=== PATIENT | female | born 1955 | race Caucasian/White ===

== ENCOUNTER 2016-06-04 16:37 | Emergency (ER) | payer OTHER ==
--- NOTE | 2016-06-04 22:33 | ED CLINICAL REPORT ---
Clinical Report - Physicians/Mid Levels [facility] [address] [place] [address] 06/04/2016 16:41 Patient: GOKUL SMITH Time Seen: 17:21. Arrived- By private vehicle. Historian- patient (FRIEND). HISTORY OF PRESENT ILLNESS Chief Complaint: ANXIOUS and DEPRESSED. This started months ago but recently much worse. (Ms Smith has had significant anxiety for years. With the of her 8 years ago she has been severely anxious and depressed. She recently changed mental health providers from [facility] to a stand alone psychiatric Nurse practitioner. She has been taking lorazepam for several months from her [facility] provider. She states that she is still taking the medication. She has spoken of "wanting this to end" when speaking of the anxiety. She did ask a friend to canal driver her to a body of water so that she could drown herself. She does not know know her psychiatric diagnosis.). Has been depressed but eating. Has not been sleeping. She has had anxiety. No delusions, self-injury inflicted or hallucinations. Has had suicidal thoughts (high rescue to risk ratio of drowning plan.). Has briefly considered suicide. Expresses unambiguous wish to . Has low lethality plan for suicide. The symptoms are described as severe. She is quite disabled by her severe anxiety. REVIEW OF SYSTEMS No decreased vision, ear pain, sore throat, chest pain or cough. No difficulty breathing, abdominal pain, constipation, diarrhea or nausea. No joint pain, laceration or difficulty with urination. The patient has had depression. No difficulty walking. PAST HISTORY ( PCP: Kari CHEEK). SOCIAL HISTORY Never smoker. Has social support. ADDITIONAL NOTES The nursing notes have been reviewed. PHYSICAL EXAM Vital Signs: 06/04/2016 16:57 BP: 136/99. HR: 116. RR: 16. O2 saturation: 96%. Temp: 97.8 F. Appearance: Alert. Patient is in moderate distress. Is not disheveled. (cooperative but so anxious that cooperation is difficult.). Eyes: Pupils equal, round and reactive to light. Neck: Normal inspection. CVS: Normal heart rate and rhythm. Heart sounds normal. Respiratory: Breath sounds normal. Chest nontender. Abdomen: Soft and nontender. Skin: Skin warm. Normal skin color. Extremities: Extremities exhibit normal ROM. No lower extremity edema. Psych / Neuro: Oriented X 3. Speech normal. Cognition normal. No apparent hallucinations or delusions. She expresses suicidal thoughts. Has not conceived of a specific plan. Patient does not express homicidal thoughts or obsessions or compulsions. Insight and judgement normal. Cranial nerves normal (as tested). Normal gait. No motor deficit. Affect is not blunted or flat. LABS, X-RAYS, AND EKG Laboratory Tests: UA-Culture if indicated: (ERIC: 06/04/2016 17:00) ( MsgRcvd 06/04/2016 18:16) Final results Test Result Flag Units (Reference) URINE COLOR YELLOW URINE APPEARANCE CLEAR URINE GLUCOSE NEGATIVE (NEGATIVE) URINE BILIRUBIN NEGATIVE (NEGATIVE) URINE KETONE NEGATIVE (NEGATIVE) URINE SPECIFIC GRAVITY <= 1.005 L (1.010-1.030) URINE PH 7.0 (5.0-8.0) URINE PROTEIN NEGATIVE (NEGATIVE) URINE UROBILINOGEN 0.2 EU/dL (0.2-1.0) URINE NITRITE NEGATIVE (NEGATIVE) URINE BLOOD TRACE-INTACT (NEGATIVE) URINE LEUK ESTERASE TRACE (NEGATIVE) URINE RBC NONE SEEN rbc/hpf (0-1) URINE WBC NONE SEEN wbc/hpf (0-1) URINE EPITHELIAL CELLS NONE SEEN EPI/hpf (0-5) URINE BACTERIA NONE SEEN (NONE SEEN) URINE COMMENT CULTURE INDICATED URINE CULTURES ARE SET-UP BASED ON THE FOLLOWING CRITERIA:POSITIVE NITRITEPOSITIVE LEUKOCYTE ESTERASEGREATER THAN 10 WHITE BLOOD CELLSMODERATE (2+) OR GREATER BACTERIA CBC w Diff: (ERIC: 06/04/2016 17:18) ( MsgRcvd 06/04/2016 18:11) Final results Test Result Flag Units (Reference) WHITE BLOOD COUNT 5.6 K/uL (4.5-11.5) RED BLOOD COUNT 3.92 L M/uL (4.00-5.20) HEMOGLOBIN 13.4 gm/dL (12.0-16.0) HEMATOCRIT 39.3 % (36.0-46.0) MEAN CELL VOLUME 100 fL (80-100) MEAN CORPUSCULAR HGB 34 pg (26-34) MEAN CORPUSCULAR HGB CONC 34 g/dL (31-37) RED CELL DISTRIBUTION WIDTH 12.8 % (11.6-14.8) PLATELET COUNT 306 K/uL (150-400) NEUTROPHIL % 71.5 % (50-75) LYMPH % 20.2 L % (25-40) MONO % 6.9 % (3-14) EOSINOPHIL % 1.2 % (0-4) BASOPHIL % 0.2 % (0-2) Urine Drug Screen: (ERIC: 06/04/2016 17:00) ( MsgRcvd 06/04/2016 18:19) Final results Test Result Flag Units (Reference) AMPHETAMINE/METHAMPHETAMINE NEGATIVE (NEGATIVE) BARBITURATE NEGATIVE (NEGATIVE) BENZODIAZEPINE NEGATIVE (NEGATIVE) CANNABINOID NEGATIVE (NEGATIVE) COCAINE NEGATIVE (NEGATIVE) ECSTASY NEGATIVE (NEGATIVE) METHADONE NEGATIVE (NEGATIVE) OPIATE NEGATIVE (NEGATIVE) The urine drug screen is a qualitative screening test fordrug overdose and abuse. All screen results should beconsidered as presumptive.Drugs screened for are as follows:BenzodiazepinesCocaineAmphetamines/MetamphetaminesTHC (Tetrahydrocannabinol)OpiatesBarbituratesEcstasyMethadonePositive results are unconfirmed. For confirmation, notifythe lab for the specimen to be sent to the reference lab.All confirmations must be performed by a differentmethodology.The ingestion of natural herbal and plant productscontaining Ephedra/Ephedra metabolites can produce in urineone or more substances capable of cross reacting withamphetamine/methamphetamine immunoassays. These testsprovide a preliminary result only. A more specificalternative chemical method must be used to obtain aconfirmed analytical result. CMP: (ERIC: 06/04/2016 17:18) ( [facility] 06/04[facility] 18:18) Final results Test Result Flag Units (Reference) GLUCOSE 112 H mg/dL (70-110) BUN 14 mg/dL (7-18) CREATININE 1.0 mg/dL (0.6-1.3) Estimated GFR >60 mL/min Estimated GFR- >60 mL/min Note: Persistent reduction over 3 months in eGFR<60 mL/min/1.73 m2 defines CKD. Patients with eGFR values>=60 mL/min/1.73 m2 may also have CKD if evidence ofpersistent proteinuria. Additional information may be foundat www.kidney.org. SODIUM 141 mmol/L (136-145) POTASSIUM 4.0 mmol/L (3.5-5.1) CHLORIDE 102 mmol/L (98-107) CARBON DIOXIDE 29 mmol/L (21-32) CALCIUM 9.3 mg/dL (8.5-10.1) TOTAL PROTEIN 7.4 g/dL (6.4-8.2) ALBUMIN 4.0 g/dL (3.3-5.0) BILIRUBIN, TOTAL 0.2 mg/dL (0.0-1.0) ALKALINE PHOSPHATASE 137 H U/L (46-116) AST (SGOT) 14 L U/L (15-37) ALT (SGPT) 25 U/L (12-78) ETHYL ALCOHOL <3 L mg/dL (3-10) . PROGRESS AND PROCEDURES Course of Care: Of note: Pt states that she is taking Lorazepam but her Utox is negative for Benzodiazepines. That said, she does not have the appearance of benzodiazepine withdrawal. 22:53 06/04/16. She is given her usual quetiapine and Benadryl with Lorazepam 0.5 mg x 3 po. The [employer] tool maintenance worker has been here to see the patient. An admission to [facility] is arraigned. [facility] and Dr Salinas Russell will be the admitting physician. Dr Mayfield is aware of the patient and the plan of care and will intervene if needed. No further ED care is anticipated. The chart is complete but is left unlocked incase Dr Mayfield has additional interventions. A transfer / COBRA form is completed. Disposition: Transferred. CLINICAL IMPRESSION ACUTE PSYCHOSIS DUE TO ANXIETY AND DEPRESSION. (Electronically signed by Brayden Harvey MD 06/05/2016 10:19) Addenda for GOKUL SMITH VisitID: [id number] Date: 06/04/2016 06/05/2016 10:19 Locked without modification (Electronically signed by Brayden Harvey MD - 06/05/2016 10:19)
--- NOTE | 2016-06-04 22:33 | ED ORDER SUMMARY ---
..... Patient: GOKUL CLOUD OrderSheet [facility] VisitID: [id number] [address] [place] [address] 61y, F Registration Date/Time: 06/04/2016 ORDER SHEET Weight: 58.9 kg (estimated) Allergies: Dairy, Reglan, Compazine, Sulfa Antibiotics GENERAL ORDERS: CBC w Diff Urgent (17:53 06/04/2016 [employer]) (Ack 17:56 Kerwin) (19:58 ALawrence ER Tech1) CMP Urgent (17:53 06/04/2016 [employer] [facility]) (Ack 17:56 Kerwin) (19:58 ALawrence ER Tech1) UA-Culture if indicated Urgent (17:53 06/04/2016 [employer] [facility]) (Ack 17:56 Kerwin) (19:58 ALawrence ER Tech1) Urine Drug Screen Urgent (17:53 06/04/2016 [employer] [facility]) (Ack 17:56 Kerwin) (19:58 ALawrence ER Tech1) Ethyl Alcohol Urgent (17:53 06/04/2016 [employer] [facility]) (Ack 17:56 Kerwin) (19:58 ALawrence ER Tech1) MEDICATION ORDERS: LORazepam PO 0.5 mg (HIGH ALERT MEDICATION, NOW) (19:47 06/04/2016 [employer] [facility]) (20:23 EBonartur) Benadryl PO 50 mg (NOW) (22:16 06/04/2016 Maria verbal order read back to [employer]) (22:44 Maria) - (QUIETIAPINE 150 MG PO) (22:26 06/04/2016 [employer] [facility]) (22:46 Maria) LORazepam PO 0.5 mg (NOW) (22:36 06/04/2016 [employer] [facility]) (22:47 Maria) IV FLUIDS: ORDER SHEET NOTES: [Electronically signed by Mahin Shepard R.N. (01:40 06/05/2016)] [Electronically signed by Brayden Harvey MD (10:19 06/05/2016)] [Electronically locked/signed by Mahin Shepard R.N. (01:40 06/05/2016)Mehdi
--- NOTE | 2016-06-04 22:33 | ED NURSING NOTES ---
Clinical Report - Nurses [facility] [address] [place] [address] 06/04/2016 16:41 Patient: GOKUL CLOUD TRIAGE Triage time 16:47. Acuity: LEVEL 2. Chief Complaint: SUICIDAL THOUGHTS and ANXIETY. Alert. No acute distress. VANESSA COMA SCORE: [place] Coma Scale: 15- eyes open spontaneously (4); best verbal response- oriented x 4 (5); best motor response- obeys commands (6). --17:13 Sarah Carrero R.N. 16:57 06/04/16. BP: 136/99. HR: 116. RR: 16. O2 saturation: 96% on room air. Temp: 97.8 F (oral). Pain level now 0/10. --17:13 Sarah Carrero R.N. Weight: 58.9 kg estimated. Height/Length: 60 inches Estimated. BMI: 25.4. --16:57 Sarah Carrero R.N. Medications LORazepam Oral. --17:00 Sarah Carrero R.N. SEROquel Oral. --17:00 Sarah Carrero R.N. Benadryl Oral. --17:01 Sarah Carrero R.N. Medication/allergy information source: the patient. --17:13 Sarah Carrero R.N. Allergies Dairy. --17:09 Sarah Carrero R.N. Reglan. --17:09 Sarah Carrero R.N. Compazine. --17:10 Sarah Carrero R.N. Sulfa Antibiotics. --17:10 Sarah Carrero R.N. History Primary physician (gali). ( pt very anxious in triage. Seen by psychiatrist today and encouraged to come to ED. Brought by friend for statements of self harm which have been increasing in frequency over the past 2 months per her friend. Pt continues to be agitated and has difficulty answering questions). Onset. (1 months ago). 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 SELF HARM ASSESSMENT: A self harm assessment was performed. The friend reported the patient's behavior as agitated and restless and included verbal threats and suicidal comments. In the ED the patient has been agitated and restless. She has been placed under continuous supervision. She was placed in a safe room. Clothes and valuables were removed and placed at the nurses station. The ED physician has been notified. FALL RISK ASSESSMENT: Fall risk assessment completed. No fall risk identified. NUTRITIONAL RISK ASSESSMENT: The nutritional risk assessment revealed no deficiencies. FUNCTIONAL ASSESSMENT: Functional assessment: no impairments noted. LEARNING NEEDS ASSESSMENT: The learning needs assessment revealed no barriers. SKIN INTEGRITY ASSESSMENT: Skin integrity risk assessment completed. No skin integrity risk identified. --17:13 Sarah Carrero R.N. Interventions ID band on patient. To treatment room. --17:13 Sarah Carrero R.N. PHYSICAL ASSESSMENT Ambulatory to room. Patient gowned. GENERAL / NEURO / PSYCH: Alert. Appears anxious and in distress. Speech within normal limits. Patient's mood/affect appears hostile. She appears to have altered thought processes. Good eye contact. Patient appears well-nourished and neat and clean. RESPIRATORY: Respirations not labored. Breath sounds within normal limits. CVS: Normal heart rate and rhythm. Capillary refill less than 2 seconds. GI / : Abdomen soft and nontender. Bowel sounds within normal limits. SKIN: Skin is warm and dry. Skin color is within normal limits. --18:00 Telma Clifford. NURSING PROGRESS NOTES Checked patient name and birthdate: patient confirmed. Blood samples drawn from the left antecubital space with syringe and 23g butterfly by [employer] per protocol ; labeled in presence of the patient and sent to lab: rainbow set: cardiac enzymes (1st set). --17:23 Enrrique Cagle 19:15- Friend left bedside, states she will be back in 30min. --19:16 Fawn Morton R.N. 20:23 06/04/2016 Lorazepam PO 0.5 mg given. 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 --20:23 Telma Clifford ( 2015 Friend back in room). --20:43 Telma Clifford ( 2034 PAt team here). --20:43 Telma Clifford <<STRICKEN ENTRY-- 22:26 06/04/2016 Lorazepam PO 0.5 mg given. Allergies verified and confirmed 5 rights. --22:26 Telma Clifford --END STRIKE>> Change to Details. --22:48 Telma Clifford 22:44 06/04/2016 Benadryl (DiphenhydrAMINE HCl) PO 50 mg given. Allergies verified and confirmed 5 rights. --22:44 Telma Clifford 22:46 06/04/2016 Quetiapine * PO 150mg --22:46 Telma Clifford 22:47 06/04/2016 Lorazepam PO 0.5 mg given. Allergies verified and confirmed 5 rights. --22:47 Telma Clifford 22:51 06/04/16. BP: 111/62. HR: 89. RR: 20. O2 saturation: 98%. --22:51 Telma Clifford ( PAT team done, pt to be transferred, pt requesting light off to sleep.). --22:52 Telma Clifford ( Report to Seema Lakhanifashahana Spence). --00:42 Telma Clifford. DISPOSITION / DISCHARGE Departure time: 0130. Transferred to [facility]. Summary of care provided to EMS and transfer facility via paper (0130 AM). Transported via ambulance by EMS. Report was given to a nurse via a phone call. Report included patient's care, treatment, medications, reviewed medication reconcilliation, and condition (including any recent changes or anticipated changes). All questions were answered. Report was acknowledged and care was transferred. Patient's personal items; items were placed in belongings bag and transported with the patient. --01:40 Mahin Shepard R.N. 01:38 06/05/16. BP: 112/60. HR: 88. RR: 16. O2 saturation: 98%. Temp: 98 F. Pain level now 0/10. --01:40 Mahin Shepard R.N. Locked/Released at 06/05/2016 1:40 by Mahin Shepard R.N.
--- NOTE | 2016-06-04 22:33 | ED CLINICAL REPORT ---
Clinical Report - Physicians/Mid Levels [facility] [address] [place] [address] 06/04/2016 16:41 Patient: GOKUL SMITH Time Seen: 17:21. Arrived- By private vehicle. Historian- patient (FRIEND). HISTORY OF PRESENT ILLNESS Chief Complaint: ANXIOUS and DEPRESSED. This started months ago but recently much worse. (Ms Smith has had significant anxiety for years. With the of her 8 years ago she has been severely anxious and depressed. She recently changed mental health providers from [facility] to a stand alone psychiatric Nurse practitioner. She has been taking lorazepam for several months from her [facility] provider. She states that she is still taking the medication. She has spoken of "wanting this to end" when speaking of the anxiety. She did ask a friend to cattle driver her to a body of water so that she could drown herself. She does not know know her psychiatric diagnosis.). Has been depressed but eating. Has not been sleeping. She has had anxiety. No delusions, self-injury inflicted or hallucinations. Has had suicidal thoughts (high rescue to risk ratio of drowning plan.). Has briefly considered suicide. Expresses unambiguous wish to . Has low lethality plan for suicide. The symptoms are described as severe. She is quite disabled by her severe anxiety. REVIEW OF SYSTEMS No decreased vision, ear pain, sore throat, chest pain or cough. No difficulty breathing, abdominal pain, constipation, diarrhea or nausea. No joint pain, laceration or difficulty with urination. The patient has had depression. No difficulty walking. PAST HISTORY ( PCP: Kari CHEEK). SOCIAL HISTORY Never smoker. Has social support. ADDITIONAL NOTES The nursing notes have been reviewed. PHYSICAL EXAM Vital Signs: 06/04/2016 16:57 BP: 136/99. HR: 116. RR: 16. O2 saturation: 96%. Temp: 97.8 F. Appearance: Alert. Patient is in moderate distress. Is not disheveled. (cooperative but so anxious that cooperation is difficult.). Eyes: Pupils equal, round and reactive to light. Neck: Normal inspection. CVS: Normal heart rate and rhythm. Heart sounds normal. Respiratory: Breath sounds normal. Chest nontender. Abdomen: Soft and nontender. Skin: Skin warm. Normal skin color. Extremities: Extremities exhibit normal ROM. No lower extremity edema. Psych / Neuro: Oriented X 3. Speech normal. Cognition normal. No apparent hallucinations or delusions. She expresses suicidal thoughts. Has not conceived of a specific plan. Patient does not express homicidal thoughts or obsessions or compulsions. Insight and judgement normal. Cranial nerves normal (as tested). Normal gait. No motor deficit. Affect is not blunted or flat. LABS, X-RAYS, AND EKG Laboratory Tests: UA-Culture if indicated: (ERIC: 06/04/2016 17:00) ( MsgRcvd 06/04/2016 18:16) Final results Test Result Flag Units (Reference) URINE COLOR YELLOW URINE APPEARANCE CLEAR URINE GLUCOSE NEGATIVE (NEGATIVE) URINE BILIRUBIN NEGATIVE (NEGATIVE) URINE KETONE NEGATIVE (NEGATIVE) URINE SPECIFIC GRAVITY <= 1.005 L (1.010-1.030) URINE PH 7.0 (5.0-8.0) URINE PROTEIN NEGATIVE (NEGATIVE) URINE UROBILINOGEN 0.2 EU/dL (0.2-1.0) URINE NITRITE NEGATIVE (NEGATIVE) URINE BLOOD TRACE-INTACT (NEGATIVE) URINE LEUK ESTERASE TRACE (NEGATIVE) URINE RBC NONE SEEN rbc/hpf (0-1) URINE WBC NONE SEEN wbc/hpf (0-1) URINE EPITHELIAL CELLS NONE SEEN EPI/hpf (0-5) URINE BACTERIA NONE SEEN (NONE SEEN) URINE COMMENT CULTURE INDICATED URINE CULTURES ARE SET-UP BASED ON THE FOLLOWING CRITERIA:POSITIVE NITRITEPOSITIVE LEUKOCYTE ESTERASEGREATER THAN 10 WHITE BLOOD CELLSMODERATE (2+) OR GREATER BACTERIA CBC w Diff: (ERIC: 06/04/2016 17:18) ( MsgRcvd 06/04/2016 18:11) Final results Test Result Flag Units (Reference) WHITE BLOOD COUNT 5.6 K/uL (4.5-11.5) RED BLOOD COUNT 3.92 L M/uL (4.00-5.20) HEMOGLOBIN 13.4 gm/dL (12.0-16.0) HEMATOCRIT 39.3 % (36.0-46.0) MEAN CELL VOLUME 100 fL (80-100) MEAN CORPUSCULAR HGB 34 pg (26-34) MEAN CORPUSCULAR HGB CONC 34 g/dL (31-37) RED CELL DISTRIBUTION WIDTH 12.8 % (11.6-14.8) PLATELET COUNT 306 K/uL (150-400) NEUTROPHIL % 71.5 % (50-75) LYMPH % 20.2 L % (25-40) MONO % 6.9 % (3-14) EOSINOPHIL % 1.2 % (0-4) BASOPHIL % 0.2 % (0-2) Urine Drug Screen: (ERIC: 06/04/2016 17:00) ( MsgRcvd 06/04/2016 18:19) Final results Test Result Flag Units (Reference) AMPHETAMINE/METHAMPHETAMINE NEGATIVE (NEGATIVE) BARBITURATE NEGATIVE (NEGATIVE) BENZODIAZEPINE NEGATIVE (NEGATIVE) CANNABINOID NEGATIVE (NEGATIVE) COCAINE NEGATIVE (NEGATIVE) ECSTASY NEGATIVE (NEGATIVE) METHADONE NEGATIVE (NEGATIVE) OPIATE NEGATIVE (NEGATIVE) The urine drug screen is a qualitative screening test fordrug overdose and abuse. All screen results should beconsidered as presumptive.Drugs screened for are as follows:BenzodiazepinesCocaineAmphetamines/MetamphetaminesTHC (Tetrahydrocannabinol)OpiatesBarbituratesEcstasyMethadonePositive results are unconfirmed. For confirmation, notifythe lab for the specimen to be sent to the reference lab.All confirmations must be performed by a differentmethodology.The ingestion of natural herbal and plant productscontaining Ephedra/Ephedra metabolites can produce in urineone or more substances capable of cross reacting withamphetamine/methamphetamine immunoassays. These testsprovide a preliminary result only. A more specificalternative chemical method must be used to obtain aconfirmed analytical result. CMP: (ERIC: 06/04/2016 17:18) ( [facility] 06/04/[place] 18:18) Final results Test Result Flag Units (Reference) GLUCOSE 112 H mg/dL (70-110) BUN 14 mg/dL (7-18) CREATININE 1.0 mg/dL (0.6-1.3) Estimated GFR >60 mL/min Estimated GFR- >60 mL/min Note: Persistent reduction over 3 months in eGFR<60 mL/min/1.73 m2 defines CKD. Patients with eGFR values>=60 mL/min/1.73 m2 may also have CKD if evidence ofpersistent proteinuria. Additional information may be foundat [email or web address].org. SODIUM 141 mmol/L (136-145) POTASSIUM 4.0 mmol/L (3.5-5.1) CHLORIDE 102 mmol/L (98-107) CARBON DIOXIDE 29 mmol/L (21-32) CALCIUM 9.3 mg/dL (8.5-10.1) TOTAL PROTEIN 7.4 g/dL (6.4-8.2) ALBUMIN 4.0 g/dL (3.3-5.0) BILIRUBIN, TOTAL 0.2 mg/dL (0.0-1.0) ALKALINE PHOSPHATASE 137 H U/L (46-116) AST (SGOT) 14 L U/L (15-37) ALT (SGPT) 25 U/L (12-78) ETHYL ALCOHOL <3 L mg/dL (3-10) . PROGRESS AND PROCEDURES Course of Care: Of note: Pt states that she is taking Lorazepam but her Utox is negative for Benzodiazepines. That said, she does not have the appearance of benzodiazepine withdrawal. 22:53 06/04/16. She is given her usual quetiapine and Benadryl with Lorazepam 0.5 mg x 3 po. The [place] equipment worker has been here to see the patient. An admission to [facility] is arraigned. The [facility] be [facility] and Dr Salinas Russell will be the admitting physician. Dr Mayfield is aware of the patient and the plan of care and will intervene if needed. No further ED care is anticipated. The chart is complete but is left unlocked incase Dr Mayfield has additional interventions. A transfer / COBRA form is completed. Disposition: Transferred. CLINICAL IMPRESSION ACUTE PSYCHOSIS DUE TO ANXIETY AND DEPRESSION. (Electronically signed by Brayden Harvey MD 06/05/2016 10:19) Addenda for GOKUL SMITH VisitID: [id number] Date: 06/04/2016 06/05/2016 10:19 Locked without modification (Electronically signed by Brayden Harvey MD - 06/05/2016 10:19)
--- NOTE | 2016-06-04 22:33 | ED NURSING NOTES ---
Clinical Report - Nurses [facility] [address] [place] [address] 06/04/2016 16:41 Patient: GOKUL CLOUD TRIAGE Triage time 16:47. Acuity: LEVEL 2. Chief Complaint: SUICIDAL THOUGHTS and ANXIETY. Alert. No acute distress. VANESSA COMA SCORE: [place] Coma Scale: 15- eyes open spontaneously (4); best verbal response- oriented x 4 (5); best motor response- obeys commands (6). --17:13 Sarah Carrero R.N. 16:57 06/04/16. BP: 136/99. HR: 116. RR: 16. O2 saturation: 96% on room air. Temp: 97.8 F (oral). Pain level now 0/10. --17:13 Sarah Carrero R.N. Weight: 58.9 kg estimated. Height/Length: 60 inches Estimated. BMI: 25.4. --16:57 Sarah Carrero R.N. Medications LORazepam Oral. --17:00 Sarah Carrero R.N. SEROquel Oral. --17:00 Sarah Carrero R.N. Benadryl Oral. --17:01 Sarah Carrero R.N. Medication/allergy information source: the patient. --17:13 Sarah Carrero R.N. Allergies Dairy. --17:09 Sarah Carrero R.N. Reglan. --17:09 Sarah Carrero R.N. Compazine. --17:10 Sarah Carrero R.N. Sulfa Antibiotics. --17:10 Sarah Carrero R.N. History Primary physician (gali). ( pt very anxious in triage. Seen by psychiatrist today and encouraged to come to ED. Brought by friend for statements of self harm which have been increasing in frequency over the past 2 months per her friend. Pt continues to be agitated and has difficulty answering questions). Onset. (1 months ago). Treatment REINSTATEMENT CLERK: None. SELF HARM ASSESSMENT: A self harm assessment was performed. The friend reported the patient's behavior as agitated and restless and included verbal threats and suicidal comments. In the ED the patient has been agitated and restless. She has been placed under continuous supervision. She was placed in a safe room. Clothes and valuables were removed and placed at the nurses station. The ED physician has been notified. FALL RISK ASSESSMENT: Fall risk assessment completed. No fall risk identified. NUTRITIONAL RISK ASSESSMENT: The nutritional risk assessment revealed no deficiencies. FUNCTIONAL ASSESSMENT: Functional assessment: no impairments noted. LEARNING NEEDS ASSESSMENT: The learning needs assessment revealed no barriers. SKIN INTEGRITY ASSESSMENT: Skin integrity risk assessment completed. No skin integrity risk identified. --17:13 Sarah Carrero R.N. Interventions ID band on patient. To treatment room. --17:13 Sarah Carrero R.N. PHYSICAL ASSESSMENT Ambulatory to room. Patient gowned. GENERAL / NEURO / PSYCH: Alert. Appears anxious and in distress. Speech within normal limits. Patient's mood/affect appears hostile. She appears to have altered thought processes. Good eye contact. Patient appears well-nourished and neat and clean. RESPIRATORY: Respirations not labored. Breath sounds within normal limits. CVS: Normal heart rate and rhythm. Capillary refill less than 2 seconds. GI / : Abdomen soft and nontender. Bowel sounds within normal limits. SKIN: Skin is warm and dry. Skin color is within normal limits. --18:00 Telma Clifford. NURSING PROGRESS NOTES Checked patient name and birthdate: patient confirmed. Blood samples drawn from the left antecubital space with syringe and 23g butterfly by [employer] per protocol ; labeled in presence of the patient and sent to lab: rainbow set: cardiac enzymes (1st set). --17:23 Enrrique Cagle 19:15- Friend left bedside, states she will be back in 30min. --19:16 Fawn Morton R.N. 20:23 06/04/2016 Lorazepam PO 0.5 mg given. Allergies verified, confirmed 5 rights and sedative warning given to the patient's production analyst. --20:23 Telma Clifford ( 2015 Friend back in room). --20:43 Telma Clifford ( 2034 PAt team here). --20:43 Telma Clifford <<STRICKEN ENTRY-- 22:26 06/04/2016 Lorazepam PO 0.5 mg given. Allergies verified and confirmed 5 rights. --22:26 Telma Clifford --END STRIKE>> Change to Details. --22:48 Telma Clifford 22:44 06/04/2016 Benadryl (DiphenhydrAMINE HCl) PO 50 mg given. Allergies verified and confirmed 5 rights. --22:44 Telma Clifford 22:46 06/04/2016 Quetiapine * PO 150mg --22:46 Telma Clifford 22:47 06/04/2016 Lorazepam PO 0.5 mg given. Allergies verified and confirmed 5 rights. --22:47 Telma Clifford 22:51 06/04/16. BP: 111/62. HR: 89. RR: 20. O2 saturation: 98%. --22:51 Telma Clifford ( PAT team done, pt to be transferred, pt requesting light off to sleep.). --22:52 Telma Clifford ( Report to Seema Lakhanifashahana Spence). --00:42 Telma Clifford. DISPOSITION / DISCHARGE Departure time: 0130. Transferred to [facility]. Summary of care provided to EMS and transfer facility via paper (0130 AM). Transported via ambulance by EMS. Report was given to a nurse via a phone call. Report included patient's care, treatment, medications, reviewed medication reconcilliation, and condition (including any recent changes or anticipated changes). All questions were answered. Report was acknowledged and care was transferred. Patient's personal items; items were placed in belongings bag and transported with the patient. --01:40 Mahin Shepard R.N. 01:38 06/05/16. BP: 112/60. HR: 88. RR: 16. O2 saturation: 98%. Temp: 98 F. Pain level now 0/10. --01:40 Mahin Shepard R.N. Locked/Released at 06/05/2016 1:40 by Mahin Shepard R.N.
--- NOTE | 2016-06-04 22:33 | ED ORDER SUMMARY ---
..... Patient: GOKUL CLOUD OrderSheet [facility] VisitID: [id number] [address] [place] [address] 61y, F Registration Date/Time: 06/04/2016 ORDER SHEET Weight: 58.9 kg (estimated) Allergies: Dairy, Reglan, Compazine, Sulfa Antibiotics GENERAL ORDERS: CBC w Diff Urgent (17:53 06/04/2016 [employer] [facility]) (Ack 17:56 Kerwin) (19:58 ALawrence ER Tech1) CMP Urgent (17:53 06/04/2016 [employer] [facility]) (Ack 17:56 Kerwin) (19:58 ALawrence ER Tech1) UA-Culture if indicated Urgent (17:53 06/04/2016 [employer] [facility]) (Ack 17:56 Kerwin) (19:58 ALawrence ER Tech1) Urine Drug Screen Urgent (17:53 06/04/2016 [employer] [facility]) (Ack 17:56 Kerwin) (19:58 ALawrence ER Tech1) Ethyl Alcohol Urgent (17:53 06/04/2016 [employer] [facility]) (Ack 17:56 Kerwin) (19:58 ALawrence ER Tech1) MEDICATION ORDERS: LORazepam PO 0.5 mg (HIGH ALERT MEDICATION, NOW) (19:47 06/04/2016 [employer] [facility]) (20:23 EBonartur) Benadryl PO 50 mg (NOW) (22:16 06/04/2016 Maria verbal order read back to [employer] [facility]) (22:44 Maria) - (QUIETIAPINE 150 MG PO) (22:26 06/04/2016 [employer] [facility]) (22:46 Maria) LORazepam PO 0.5 mg (NOW) (22:36 06/04/2016 [employer] [facility]) (22:47 Maria) IV FLUIDS: ORDER SHEET NOTES: [Electronically signed by Mahin Shepard R.N. (01:40 06/05/2016)] [Electronically signed by Brayden Harvey MD (10:19 06/05/2016)] [Electronically locked/signed by Mahin Shepard R.N. (01:40 06/05/2016)Mehdi
--- NOTE | 2016-06-05 10:20 | ED DISCHARGE INSTRUCTIONS ---
Patient: GOKUL CLOUD General Instructions [facility] VisitID: [id number] [address] [place] [address] 61y, F Registration Date/Time: 06/04/2016 ACUTE PSYCHOSIS DUE TO ANXIETY AND DEPRESSION. (Electronically signed by Brayden Harvey MD 06/05/2016 10:19)
--- NOTE | 2016-06-05 10:20 | ED MAR SUMMARY ---
..... Medication Administration Record [facility] [address] [place] [address] Patient: GOKUL CLOUD Visit ID: [id number] 61y, F Weight: 58.9 kg Height/Length: 60 in BMI: 25.4 ALLERGIES: Sulfa Antibiotics, Compazine, Reglan, Dairy Given 20:23 06/04/2016 Telma Clifford, Medication Administered: LORAZEPAM [PO], Dose: 0.5 mg PO. Medication Ordered: LORazepam PO 0.5 mg (HIGH ALERT MEDICATION, NOW). Given 22:44 06/04/2016 Telma Clifford, Medication Administered: BENADRYL [PO] (DIPHENHYDRAMINE HCL), Dose: 50 mg PO. Medication Ordered: Benadryl PO 50 mg (NOW). Given 22:46 06/04/2016 Telma Clifford, Medication Administered: Quetiapine *, Dose: 150mg * PO. Medication Ordered: - (QUIETIAPINE 150 MG PO). Given 22:47 06/04/2016 Telma Clifford, Medication Administered: LORAZEPAM [PO], Dose: 0.5 mg PO. Medication Ordered: LORazepam PO 0.5 mg (NOW).
--- NOTE | 2016-06-05 10:20 | ED MAR SUMMARY ---
..... Medication Administration Record [facility] [address] [place] [address] Patient: GOKUL CLOUD Visit ID: [id number] 61y, F Weight: 58.9 kg Height/Length: 60 in BMI: 25.4 ALLERGIES: Sulfa Antibiotics, Compazine, Reglan, Dairy Given 20:23 06/04/2016 Telma Clifford, Medication Administered: LORAZEPAM [PO], Dose: 0.5 mg PO. Medication Ordered: LORazepam PO 0.5 mg (HIGH ALERT MEDICATION, NOW). Given 22:44 06/04/2016 Telma Clifford, Medication Administered: BENADRYL [PO] (DIPHENHYDRAMINE HCL), Dose: 50 mg PO. Medication Ordered: Benadryl PO 50 mg (NOW). Given 22:46 06/04/2016 Telma Clifford, Medication Administered: Quetiapine *, Dose: 150mg * PO. Medication Ordered: - (QUIETIAPINE 150 MG PO). Given 22:47 06/04/2016 Telma Clifford, Medication Administered: LORAZEPAM [PO], Dose: 0.5 mg PO. Medication Ordered: LORazepam PO 0.5 mg (NOW).
--- NOTE | 2016-06-05 10:20 | ED MED RECONCILIATION SUMMARY ---
Patient: GOKUL CLOUD Medication Reconciliation Report [facility] VisitID: [id number] [address] [place] [address] 61y, F Registration Date/Time: 06/04/2016 Weight: 58.9 kg Height/Length: 60 in. BMI: 25.4 ALLERGIES: Compazine, Dairy, Reglan, Sulfa Antibiotics The patient's Home Medications are listed below: THE FOLLOWING MEDICATIONS NEED TO BE RECONCILED: Benadryl Oral LORazepam Oral SEROquel Oral The source(s) of the original Home Medication information: patient The following Medications were given to the patient in the Emergency Department: Lorazepam [PO] PO 0.5 mg, administered: 06/04/2016 8:23:00 PM Benadryl [PO] PO 50 mg, administered: 06/04/2016 10:44:00 PM Quetiapine PO 150mg, administered: 06/04/2016 10:46:00 PM Lorazepam [PO] PO 0.5 mg, administered: 06/04/2016 10:47:00 PM The following Medications were prescribed to the patient: None.
--- NOTE | 2016-06-05 10:20 | ED DISCHARGE INSTRUCTIONS ---
Patient: GOKUL CLOUD General Instructions [facility] VisitID: [id number] [address] [place] [address] 61y, F Registration Date/Time: 06/04/2016 ACUTE PSYCHOSIS DUE TO ANXIETY AND DEPRESSION. (Electronically signed by Brayden Harvey MD 06/05/2016 10:19)
--- NOTE | 2016-06-05 10:20 | ED MED RECONCILIATION SUMMARY ---
Patient: GOKUL CLOUD Medication Reconciliation Report [facility] VisitID: [id number] [address] [place] [place] [address] 61y, F Registration Date/Time: 06/04/2016 Weight: 58.9 kg Height/Length: 60 in. BMI: 25.4 ALLERGIES: Compazine, Dairy, Reglan, Sulfa Antibiotics The patient's Home Medications are listed below: THE FOLLOWING MEDICATIONS NEED TO BE RECONCILED: Benadryl Oral LORazepam Oral SEROquel Oral The source(s) of the original Home Medication information: patient The following Medications were given to the patient in the Emergency Department: Lorazepam [PO] PO 0.5 mg, administered: 06/04/2016 8:23:00 PM Benadryl [PO] PO 50 mg, administered: 06/04/2016 10:44:00 PM Quetiapine PO 150mg, administered: 06/04/2016 10:46:00 PM Lorazepam [PO] PO 0.5 mg, administered: 06/04/2016 10:47:00 PM The following Medications were prescribed to the patient: None.
== END 2016-06-05 01:30 ==
LOC: ED SRH 16:37
DX: F29 Unspecified psychosis not due to a substance or known physiological condition (principal); F41.9 Anxiety disorder, unspecified; F32.9 Major depressive disorder, single episode, unspecified; Z88.2 Allergy status to sulfonamides; Z88.8 Allergy status to other drugs, medicaments and biological substances
CPT/HCPCS: 90004; 90100; 90469; 92010; 92760; 92761; 92762; 92763; 92764; 92765; 92766; 92767; 95059